=== PATIENT | male | born 1960 | race Caucasian/White ===

== ENCOUNTER 2016-09-22 16:41 | Emergency (ER) | payer BC ==
[~2016-09-22 16:41] MED LIST: ALBUTEROL INHALER; AMBIEN CR6.25 MG/BO; AMBIEN5 M1 PO; AMBIEN5 MG; COZAAR25 M1 PO; GINSENG; IBUPROFEN100 MG; LEXAPRO20 MG; MEN'S MULTI-VI1 EACH PO; MULTIVITAMIN1 CAP; SUPER B-50 COM1 EACH PO; VITAMIN C500 M3 PO; VITAMIN D31000 UNI3 PO
[2016-09-22 16:43] LABS: BASO % 0.4 % (0-2); EOS % 6.9 % (0-7); EOSINOPHIL ABSOLUTE COUNT 0.5 tho/cmm (0.0-0.7); HCT-HEMATOCRIT 44.1 % (36.0-53.5); HGB-HEMOGLOBIN 15.2 gm/dl (13.5-17.0); IMMATURE GRANULOCYTES ABSOLUTE 0.01 tho/cmm (0-0.03); IMMATURE GRANULOCYTES PERCENT 0.1 % (0-0.3); LYMPH % 26.4 % (20-45); MCH (MEAN CORPUSCULAR HGB) 33.3 pg (28.0-32.0); MCHC MEAN CORPUSCULAR HGB CONC 34.5 % (32.0-36.0); MCV (MEAN CELL VOLUME) 96.5 fl (82.0-96.0); MEAN PLATELET VOLUME 10.1 cmc (9.4-12.4); MONO % 8.5 % (0-12); MONOCYTE ABSOLUTE COUNT 0.7 tho/cmm (0.0-1.2); NEUTROPHIL ABSOLUTE COUNT 4.4 tho/cmm (1.6-8.0); NEUTROPHIL-AUTOMATED 4.4 tho/cmm (1.6-8.0); NEUTROPHILS % 57.7 % (40-80); PLATELET COUNT 227 tho/cmm (150-450); RED BLOOD COUNT 4.57 mil/cmm (4.40-5.70); RED CELL DISTRIBUTION WIDTH 13.3 % (12.4-16.4); WHITE BLOOD COUNT 7.6 tho/cmm (4.0-10.0)
[2016-09-22 16:59] LABS: ALCOHOL (ETOH) 109 mg/dl (<10); ANION GAP 12 mmol/L (0-20); BLOOD UREA NITROGEN 11 mg/dl (6-24); CALCIUM 8.5 mg/dl (8.5-10.5); CARBON DIOXIDE-VENOUS 27 mmol/L (22-32); CHLORIDE 109 mmol/l (96-110); CREATININE 1.03 mg/dl (0.60-1.30); GLUCOSE 90 mg/dL (70-110); SODIUM 144 mmol/L (135-145); eGFR VALUE FOR BLACK >90 mL/Min
[2016-09-22 17:01] LABS: POTASSIUM 3.9 mmol/L (3.7-5.1)
== END 2016-09-22 17:56 ==
LOC: EDMED 16:41
PROVIDERS: Emergency Medicine
DX: F10.129 Alcohol abuse with intoxication, unspecified (principal); F13.90 Sedative, hypnotic, or anxiolytic use, unspecified, uncomplicated; Y90.5 Blood alcohol level of 100-119 mg/100 ml; I10 Essential (primary) hypertension; F17.200 Nicotine dependence, unspecified, uncomplicated; Z79.899 Other long term (current) drug therapy
CPT/HCPCS: G0480; J7030